=== PATIENT | male | born 1985 | race Caucasian/White ===

== ENCOUNTER 2022-02-22 12:24 | Outpatient (CLI) | payer MEDICARE, MEDICAID, SELFPAY ==
[2022-02-22 13:50] LABS: Chloride* 107 mmol/L (96-114); Sodium* 139 mmol/L (135-149)
[2022-02-22 13:51] LABS: Potassium* 4.3 mmol/L (3.6-5.1)
[2022-02-22 13:53] LABS: Carbon Dioxide* 23 mmol/L (20-32); Creatinine* 0.7 mg/dL (0.5-1.5); Estimated Glomerular Filt Rate 123.23; Hematocrit 44.2 % (37.0-53.0); Hemoglobin* 14.9 gm/dL (13.5-17.5); Mean Corpuscular HGB Conc 34 gm/dL (32-36); Mean Corpuscular Hemoglobin 30 pg (26-34); Mean Corpuscular Volume 88 fL (80-100); Platelet Count* 233 K/uL (140-440); Red Blood Count 5.05 m/uL (4.30-5.90); White Blood Count* 6.06 K/uL (4.50-11.00)
[2022-02-22 13:54] LABS: Blood Urea Nitrogen* 16 mg/dL (5-24); Calcium* 9.2 mg/dL (8.4-10.6); Glucose* 130 mg/dL (60-115)
[2022-02-22 14:03] LABS: Slide Review Reflex No
[2022-02-22 15:00] LABS: SARS PCR* Negative SARS-CoV-2 (Negative)
== END 2022-02-22 12:25 | disposition home or self-care (01) ==
PROVIDERS: PCP Family Medicine; Visit Provider Family Medicine
DX: Z20.822 Contact with and (suspected) exposure to COVID-19 (principal); Z01.818 Encounter for other preprocedural examination
CPT/HCPCS: 80048; 85027; 87635

== ENCOUNTER 2022-02-24 09:14 | Day surgery (SDC) | payer MEDICARE, MEDICAID, SELFPAY ==
[2022-02-24] VITALS (10 sets, daily range): BP systolic 105–132; BP diastolic 73–88; PULSE 76–99; RESP 12–18; TEMP 36.4–36.9; O2SAT 92–96; BMI 45.6
[2022-02-24] MEDS: LACTATED RINGERS 1000 ML 1,000 ML 100 ML IV (09:30)
[2022-02-24] MEDS: SODIUM CHLORIDE 0.9 % (FLUSH) 10 ML SYRINGE IVF (09:49)
--- NOTE | 2022-02-24 11:16 | W.PM.ENTPROC ---
Procedure Note Date of procedure: 02/24/22 Procedure: Preoperative diagnosis right tympanic membrane retraction, chronic right otitis media, conductive hearing loss postoperative diagnosis is severe retraction and serous otitis media Procedure inspection of left ear, right myringotomy without tube placement Under general endotracheal anesthesia patient was prepped and draped in usual fashion. The left ear canal was inspected and cerumen removed with a suction. Dear was no change from exam in clinic. The right ear was inspected and cerumen removed with suction. The entire inferior 2/3 of the tympanic membrane were attached to the floor of the middle ear. They are not appear to be visible cholesteatoma. I was able to make a myringotomy in the anterior superior quadrant to remove small amount of serous fluid. I will this opening was not large enough to place a tube in. Ciprodex drops were placed. The patient had procedure well taken recovery in satisfactory condition blood loss was 0 mL Anesthesia Type: General Surgeon: Amos Elliott MD
--- NOTE | 2022-02-24 11:29 | W.ANESCHARGE ---
Anesthesia Charges Start Date/Time Anesthesia Start Date: 02/24/22 Anesthesia Start Time: 10:57 Stop Date/Time Anesthesia Stop Date: 02/24/22 Anesthesia Stop Time: 11:26 Summary Emergency: No
== END 2022-02-24 12:40 | disposition home or self-care (01) ==
PROVIDERS: PCP Family Medicine; Visit Provider Otolaryngology
PROC: (CPT 69420; principal; 2022-02-24 10:15)
DX: H73.891 Other specified disorders of tympanic membrane, right ear (principal); H65.21 Chronic serous otitis media, right ear; H90.2 Conductive hearing loss, unspecified
CPT/HCPCS: 69421; 120; 170; A9270; J1100; J2250; J2405; J3010; J7120

== ENCOUNTER 2022-08-18 12:26 | Outpatient (CLI) | payer MEDICARE, MEDICAID, SELFPAY ==
[2022-08-18 15:02] LABS: Chloride* 105 mmol/L (96-114); Potassium* 4.1 mmol/L (3.6-5.1); Sodium* 141 mmol/L (135-149)
[2022-08-18 15:04] LABS: Cholesterol* 242 mg/dL (90-199)
[2022-08-18 15:05] LABS: Blood Urea Nitrogen* 15 mg/dL (5-24); Calcium* 9.6 mg/dL (8.4-10.6); Carbon Dioxide* 26 mmol/L (20-32); Creatinine* 0.7 mg/dL (0.5-1.5); Estimated Glomerular Filt Rate 122 ml/min; Glucose* 124 mg/dL (60-115); Triglycerides* 255 mg/dL (40-149)
[2022-08-18 15:06] LABS: HDL Cholesterol* 43 mg/dL (>=40); LDL Cholesterol Calculated 148 mg/dL (<100)
== END 2022-08-18 12:27 | disposition home or self-care (01) ==
PROVIDERS: PCP Family Medicine; Visit Provider Family Medicine
DX: E11.9 Type 2 diabetes mellitus without complications (principal); E66.09 Other obesity due to excess calories; E55.9 Vitamin D deficiency, unspecified; Z13.6 Encounter for screening for cardiovascular disorders
CPT/HCPCS: 80048; 80061

== ENCOUNTER 2024-01-31 15:43 | Outpatient (CLI) | payer MEDICAID, SELFPAY ==
--- OUTSIDE RECORDS SUMMARY | 2024-01-31 15:46 | XMS_ITS | Referral Summary ---
Author Organization [facility] Address [address] [place] [address] Care Team Providers Care Internet Assessor Name Role Phone Unavailable Primary Care Provider Unavailabl e Source Comments Patient records contain information from all sites at [facility]. For routine questions regarding patient records, call [phone] during business hours, M-F 8:00 AM - 5:00 PM Central Time. Record requests for emergency care only can be directed to [phone] at any time.[facility] Allergies Active Allergy Reactions Criticality Noted Date Comments Animal Dander Other (see comments) 04/02/2013 Pet dander House Dust Mite Other (see comments) 12/07/2011 Latex Rash 02/14/2010 Medications Medication Sig Dispensed Refills Start Date End Date Status OLANZapine (ZyPREXA) 10 mg tablet Take 1 tablet (10 mg total) by mouth at bedtime. 30 tablet 1 02/22/2018 Active LORazepam (ATIVAN) 0.5 mg tablet Take 0.5 mg by mouth as needed. 02/26/2018 Active famotidine (PEPCID) 20 mg tablet Take 20 mg by mouth as needed. Active miscellaneous medical supply misc autoCPAP, heated humidifier, mask, headgear, filters and tubing. Pressure: 4-15cm/H2O Length of Need: 99 07/26/2015 Active CIPRODEX 0.3-0.1 % otic suspension INSTILL 4 DROPS IN THE AFFECTED EAR TWICE DAILY FOR 7 DAYS 7.5 mL 03/29/2018 Active OXcarbazepine (TRILEPTAL) 300 mg tablet Take 300 mg by mouth 2 (two) times a day. Active OLANZapine (ZyPREXA) 2.5 mg tablet Take 2.5 mg by mouth at bedtime. 04/26/2018 Active oxyCODONE (ROXICODONE) 5 mg immediate release tabletIndications:Ac yolanda Pain Take 1 tablet (5 mg total) by mouth every 4 (four) hours Indication: Acute Pain. 15 tablet 11/11/2018 Active cholecalciferol (VITAMIN D3) 25 mcg (1,000 Unit) capsule Take 5 capsules by mouth. 06/30/2011 Active multivitamin capsule Take 1 capsule by mouth daily. Active MAGNESIUM CHLORIDE ORAL 200 mg. 02/22/2022 Active ZINC ACETATE ORAL Take by mouth. Act tram Active Problems Problem Noted Date Diagnosed Date Cholesteatoma Middle Ear And Mastoid Left 2017 Schizoaffective Disorder 12/07/2011 Overview: Schizoaffective disorder NOS Immunizations Name Administration Dates Next Due DTaP (Infanrix, Tripedia) 06/29/1992,02/12/1992, 02/11/1991 MMR 01/07/1988 OPV 06/29/1992,02/12/1992,02/11/1991 DARRON 12/26/1987 Social History Tobacco Use Types Packs/Day Years Used Date Smoking Tobacco: Never Smokeless Tobacco: Never Tobacco Cessation:Counseling Given: Not Answered Alcohol Use Standard Drinks/Week Comments Yes 1 (1 standard drink = 0.6 oz pur e alcohol) Social Connection and Isolat ion Panel [NHANES] Answer Date Recorded Frequency of Communication w ith Friends and Family More than three times a week 02/28/2019 Frequency of Social Gatherin gs with Friends and Family Twice a week 02/28/2019 Attends Denominational Services More than 4 times per year 02/28/2019 Active Member of Clubs or Organizations Yes 02/28/2019 Attends Club or Organization Meetings More than 4 times per year 02/28/2019 Marital Status Never 02/28/2019 AUDIT-C Answer Date Recorded Frequency of Alcohol Consumption 2-4 times a sun02/28/2019 Average Number of Drinks 1 or 2 019 Frequency of Binge Drinking Never 02/10 [facility] of Occupat ional Health - Occupational Stress Questionnaire Answer Date Recorded Feeling of Stress Not at all 02/28/2019 Exercise Vital Sign Answer Date Recorde d Days of Exercise per Week 4 days 2018 Minutes of Exercise per Session 30 min 02/28/2019 PRAPARE - Transportation Answer Date Re corded Lack of Transportation (Medical) No 02/28/2019 Lack of Transportation (Non-Medical) No 02/28/2019 Nutrition Answer Date Recorded Nutrition: EVOO Fat Source Unknown 10/12 Nutrition: Servings of Fruits/Vegetables per Day Not on file 10/12/2020 Dental Answer Date Recorded Dental: Regular Dentist Unknown 10/13/19 Education Answer Date Recorded What is the highest level of school you have completed or the highest degree you have received? GED or equivalent Sex and Gender Information Value Date Recorded Sex Assigned at Male 05/03/2018 3:03 PM CDT Gender Identity Male 05/03/2018 3:03 PM CDT Sexual Orientation Straight 05/03/2018 3: 03 PM CDT Last Filed Vital Signs Vital Sign Reading Time Taken Comments Blood Pressure 123/64 11/11/2018 2:58 PM CDT Pulse 91 11/11/2018 2:23 PM CDT Temperature 36.6 ??C (97.9 ??F) 11/11/2018 2:23 PM CD T Respiratory Rate 16 11/11/2018 2:23 PM CDT Oxygen Saturation 90% 11/11/2018 2:23 PM CDT Inhaled Oxygen Concentration - - Weight 138 kg (303 lb 5.7 oz) 11/11/2018 7:06 AM CDT Height 178 cm (5' 10.08) 11/11/2018 7:06 AM CDT Body Mass Index 43.43 11/11/2018 7:06 AM CDT Plan of Treatment Not on file Medical Devices Implanted Type Area Soil Surveyor Device Identifier Shelf Expiration Date Model / Serial / Lot Tb Vnt Gd Grommet 1.14x9.5x12 - [id number] Implanted:Qty: 1 on 11/11/2018 by Sebastián Lan M.D. at [facility] Ear Tubes (e.g. PE Tubes) Medtronic [id number] 08/19/2026 [id number] / / [id number] Procedures Procedure Name Priority Date/Time Associated Diagnosis Comments EXTI LIPID PANEL W REFLEX MEASURED LDL Routine 12/05/2023 12:21 PM CDT EXTI COMPREHENSIVE METABOLIC PANEL, S/P Routine 06/26/2018 2:24 PM SILVERWARE SUPERVISOR from Last 3 Months or Most Recently Relevant to Health Maintenance Advance Directives For more information, please contact: [phone] * Full Code (Latest Code Status on File) Date Activated Date Inactivated Comments 02/18/2018 11:32 PM 02/22/2018 9:17 PM Question Answer Comments Full Code: Not Discussed Due to: Patient not available
--- OUTSIDE RECORDS SUMMARY | 2024-01-31 15:46 | XMS_ITS | Clinical Summary ---
Author Organization [facility] Address [address] [place] [address] Care Team Providers Care Morphology Teacher Name Role Phone Unavailable Primary Care Provider Unavailabl e Source Comments Patient records contain information from all sites at [facility]. For routine questions regarding patient records, call [phone] during business hours, M-F 8:00 AM - 5:00 PM Central Time. Record requests for emergency care only can be directed to [phone] at any time.[facility] Allergies Active Allergy Reactions Criticality Noted Date [...] 02/11/1991 MMR 01/07/1988 OPV 06/29/1992,02/12/1992,02/11/1991 DARRON 12/26/1987 Family History Medical History Relation Name Comments Asthma Brother Hypertension Father Lymphoma Father Alcohol abuse Grandfather 1 Stroke Grandfather 1 Coronary artery disease Grandfather 2 maternal Diabetes Grandfather 2 maternal Hyperlipidemia Grandfather 2 maternal Hypertension Grandfather 2 maternal Obesity Grandfather 2 maternal Colon cancer Grandmother Hyperthyroidism Mother Relation Name Status Comments Brother Father Grandfather 1 Grandfather 2 maternal Grandmother Mother Social History Tobacco Use Types Packs/Day Years [...] and Family Twice a week 02/28/2019 Attends Mandaeism Services More than 4 times per year 02/28/2019 Active Member of Clubs or Organizations Yes 02/28/2019 Attends Club or Organization Meetings More than 4 times per year 02/28/2019 Marital Status Never 02/28/2019 AUDIT-C Answer Date Recorded Frequency of Alcohol Consumption 2-4 times a mon th 02/28/2019 Average Number of Drinks 1 or 2 019 Frequency of Binge Drinking Never 02/10 [facility] of Occupat ional Health - Occupational Stress [...] 11/11/2018 7:06 AM CDT Plan of Treatment Health Maintenance Due Date Last Done Comments HIV Screening 1986 Hepatitis C Screening 1986 DTaP,Tdap,and Td Vaccines (4 - Tdap) 1997 06/29/1992, 02/12/1992, 02/11/1991 Hepatitis B Vaccines (1 of 3 - 19+ 3-dose series) 2005 Glucose Test for Med Monitoring 06/26/2019 06/26/2018, 02/17/2018, 02/17/2018, Additional history exists COVID-19 Vaccine (2022- season) 2023 Influenza Vaccine (#1) 2023 Depression Screening (Annual PHQ-2) 08/13/2023 Lipid (Cholesterol) Screening 12/04/2028 12/05/2023, 04/24/2022, 06/26/2018 HPV Vaccines Aged Out No longer eligi ble based on patient's age to complete this topic Pneumococcal vaccine (0-64 years) Aged Out No longer eligible based on patient's age to complete this topic Medical Devices Implanted Type Area Flight Deck Officer Device Identifier Shelf Expiration Date Model / Serial / Lot Tb Vnt Gd Grommet 1.14x9.5x12 - [id number] Implanted:Qty: 1 on 11/11/2018 by Sebastián Lan M.D. at [facility] Ear Tubes (e.g. PE Tubes) [employer]tronic [id number] 08/19/2026 [id number] / / [id number] Procedures Procedure Name Priority Date/Time Associated Diagnosis Comments EXTI LIPID PANEL W REFLEX MEASURED LDL Routine 12/05/2023 12:21 PM CDT EXTI COMPREHENSIVE METABOLIC PANEL, S/P Routine 06/26/2018 2:24 PM TUBE MACHINE OPERATOR HELPER from Last 3 Months or Most Recently Relevant to Health Maintenance Advance Directives For more information, please contact: [phone] * Full Code (Latest Code Status on File) Date Activated Date Inactivated Comments 02/18/2018 11:32 PM 02/22/2018 9:17 PM Question Answer Comments Full Code: Not Discussed Due to: Patient not available
--- OUTSIDE RECORDS SUMMARY | 2024-01-31 15:46 | XMS_ITS | Clinical Summary ---
Author Organization [facility] Address [place], [place] [address] Care Team Providers Care Channel Marketing Coordinator Name Role Phone Yobany Morales MD Primary Care Provider + Allergies Active Allergy Reactions Criticality Noted Date Comments Amoxicillin Rash,Hives 09/18/2008 Animal Dander Other - Describe In Comment Field 04/02/2013 Pet dander Other reaction(s): Other (see comments) Pet dander Dust Mites 02/14/2010 sneezing House Dust Mite Other - Describe In Comment Field 12/07/2011 Other reaction(s): Other (see comments) Latex Rash 02/14/2010 Milk Other - Describe In Comment Field Low 02/14/2010 Pt states he becomes drowsy and sneezes 07/09/2023: ??Will states that he doesn't think he is allergic to milk anymore, I think I outgrew it. Unlisted Allergen (Include Detail In Comments) *Unknown 04/02/2013 Pet dander Pollen Extracts Other - Describe In Comment Field 03/11/2014 sneezing Medications Medication Sig Dispensed Refills Start Date End Date Status multivitamin (MVI) tablet Take 1 tablet. by mouth once daily. taking it sometimes 0 06/30/2011 Active cholecalciferol (VITAMIN D) 1,000 unit capsule Take 5 capsules by mouth once daily. 0 06/30/2011 Active triamcinolone, 55 mcg each actuation, nasal (NASACORT) 55 mcg nasal spray Inhale 2 Sprays to both nostrils once daily. not taking 16.5 g 0 06/26/2014 Active cetirizine (ZYRTEC) 10 mg tablet Take 10 mg by mouth once daily. takes during the summer 0 06/26/2014 Active famotidine (PEPCID) 20 mg tablet Take 20 mg by mouth two times daily. taking when needed 30 tablet Active fluticasone (50 mcg per actuation) nasal solution (FLONASE) taking when needed, not taking right now 03/15/2021 Active loratadine (CLARITIN) 10 mg tablet Take 10 mg by mouth once daily. summer only 03/11/2021 Active OXcarbazepine (TRILEPTAL) 300 mg tabletIndication s:Schizoaffectiv e disorder, bipolar type (HC) TAKE 1 TABLET(300 MG) BY MOUTH TWICE DAILY 180 Tablet 1 10/08/2023 Active ZINC ACETATE ORAL Take by mouth. Active CPAPIndications: ALF (obstructive sleep apnea) CPAP machine for home use at pressure 4-15cmw, CPAP mask- mask of choice, fit to comfort one per 3 months 1 Each 10/09/2023 Active LORazepam (ATIVAN) 0.5 mg tabIndications:S chizoaffective disorder, bipolar type (HC) Take 1-2 Tablets (0.5-1 mg) by mouth once daily if needed for Anxiety. 15 Tablet 2 12/05/2023 Active haloperidoL (HALDOL) 5 mg tabletIndication s:Schizoaffectiv e disorder, bipolar type (HC) Take 1 Tablet (5 mg) by mouth two times daily. May also take 1 Tablet (5 mg) once daily if needed for Agitation or Hallucinations. 90 Tablet 2 12/05/2023 Active OLANzapine (ZYPREXA) 15 mg tabletIndication s:Schizoaffectiv e disorder, bipolar type (HC) Take 1 Tablet (15 mg) by mouth at bedtime. 30 Tablet 1 01/28/2024 Active OLANzapine (ZYPREXA, FILM COATED TABLET,) 10 mg tabletIndication s:Schizoaffectiv e disorder, bipolar type (HC) Take 1 Tablet (10 mg) by mouth at bedtime. 90 Tablet 1 10/08/2023 01/02/2024 Discontinued (*Medication adjustment) OLANzapine (ZYPREXA) 15 mg tabletIndication s:Schizoaffectiv e disorder, bipolar type (HC) Take 1 Tablet (15 mg) by mouth at bedtime. 30 Tablet 1 01/02/2024 01/25/2024 Discontinued (Reorder (E-cancel not sent)) Active Problems Problem Noted Date Diagnosed Date Controlled substance agreement signed 09/21/2017 Overview: 09/21/17 signed .Viri Kelly DNP, SAFETY EQUIPMENT TESTER, PRODUCTION CELL LEADER/psychiatry Elevated lipids 01/07/2016 ALF 07/02/2105 AHI-96 07/26/2015 Schizoaffective disorder, bipolar type 5 High risk medications (not anticoagulants) long- term use 07/14/2015 Environmental allergies 09/18/2008 Resolved Problems Problem Noted Date Diagnosed Date Resolved Date Controlled substance agreement signed 02/28/2017 02/04/2018 Overview: 11/09/[address] Praveen Schroeder psychiatry/hc OCD (obsessive compulsive disorder) 09/17/2013 09/21/2017 Schizoaffective disorder, un specified condition 08/28/2008 07/14/2015 Depressive disorder, not elsewhere classified 08/28/19 09 09/22/2009 Encounters Date Type Department Care Team Description 01/25/2024 Refill [facility] [address] [place] [address] Danelle Jacob MD Refill Request (Olanzapine 10mg) 01/02/2024 11:45 AM CDT Office Visit [facility] [address] [place] [address] Danelle Jacob MD Medication Management; Follow Up 01/02/2024 Travel 12/07/2023 Telephone [facility] [address] [facility] [place] [address] Danelle Jacob MD 12/05/2023 11:15 AM CDT Office Visit [facility] [address] [place] [address] Danelle Jacob MD Medication Management; Follow Up 12/05/2023 Travel from Last 3 Months Immunizations Name Administration Dates Next Due DTaP 06/29/1992,02/12/1992,02/11/1991 MMR 01/07/1988 Oral Polio Vaccine 06/29/1992,02/12/1992, 991 Varicella Vaccine 12/26/1987 Family History Medical History Relation Name Comments Cancer Father Non Hogkin's Ly mphoma Diabetes Maternal Grandfather Heart Disease Maternal Grandfather Richy ar with surgery. Hyperlipidemia Maternal Grandfather Hypertension Maternal Grandfather Thyroid Disease Mother Relation Name Status Comments Father Maternal Grandfather Mother Social History Tobacco Use Types Packs/Day Years Used Date Smoking Tobacco: Never Smokeless Tobacco: Never Tobacco Cessation:Counseling Given: Not Answered Comments:occ cigars in the past done as a teenager, i was never addicted to it Alcohol Use Standard Drinks/Week Comments Not Currently 0 (1 standard drink = 0.6 oz pur e alcohol) none since PHQ-2 Answer Date Recorded PHQ-2 TOTAL SCORE 2 10/08/2023 Social Connections Answer Date Recorded Frequency of Communication with Friends and Fami ly Not on file 01/05/2023 Financial Resource Strain Answer Date R ecorded Difficulty of Paying Living Expenses 3 01/04/2022 Difficulty of Paying Living Expenses Not on file 01/04/2022 Food Insecurity Answer Date Recorded Worried About Running Out of Food in the Last Ye ar 1 01/04/2022 Transportation Needs Answer Date Record ed Lack of Transportation (Medical) 1 01/04/2022 Housing Stability Answer Date Recorded Unable to Pay for Housing in the Last Year 1 01/04/2022 Sex and Gender Information Value Date Recorded Sex Assigned at Not on file Gender Identity Not on file Sexual Orientation Not on file Obstetrics History Last Filed Vital Signs Vital Sign Reading Time Taken Comments Blood Pressure 126/60 01/02/2024 12:00 PM CDT Pulse 73 01/02/2024 12:00 PM CDT Temperature 36.7 ??C (98.1 ??F) 01/04/2022 3:45 PM CD T Respiratory Rate 18 01/04/2022 3:45 PM CDT Oxygen Saturation 96% 10/09/2023 2:28 PM PROGRAMMING EQUIPMENT OPERATOR Inhaled Oxygen Concentration - - Weight 154.3 kg (340 lb 3.2 oz) 024 12:00 PM CDT Height 175.3 cm (5' 9) 10/09/2023 2:28 PM PROGRAMMING EQUIPMENT OPERATOR Body Mass Index 50.24 10/09/2023 2:28 PM PROGRAMMING EQUIPMENT OPERATOR Plan of Treatment Upcoming Encounters Date Type Department Care Team (Late st Contact Info) Description 02/06/2024 10:45 AM CDT Office Visit [facility] [address] [place] [address] Danelle Jacob MD [address] [place] [address] Health Maintenance Due Date Last Done Comments Tdap 1997 HIV for age 15-65 2001 Hepatitis C screening for age 18-79 2004 Tetanus booster 2006 COVID-19 vaccine series ( season) 2023 Influenza for age 9-49 04/13/2024 BMI (ht and wt on same day) for age 18+ 10/09/2024 10/09/2023, 12/20/2022, 09/25/2019, Additional history exists Depression screening for age 12+ 10/09/2024 10/09/2023, 10/08/2023, 07/10/2023, Additional history exists Lipids for age 35-44 12/04/2028 12/05/2023, 04/24/2022, 06/26/2018, Additional history exists Pneumococcal series for age 6-64 Aged Out No longer eligible based on patient's age to complete this topic Procedures Procedure Name Priority Date/Time Associated Diagnosis Comments LIPID PANEL W REFLEX MEASURED LDL Routine 12/05/2023 12:21 PM CDT half-way current use of antipsychotic medication HEMOGLOBIN A1C SCREENING Routine 12/05/2023 12:21 PM CDT half-way current use of antipsychotic medication from Last 3 Months Results * (ABNORMAL) HEMOGLOBIN A1C SCREENING (12/05/2023 12:21 PM CDT) HEMOGLOBIN A1C SCREENING 7.9(H) <=6.4 % 12/06/2023 2:54 PM CDT [facility] Blood BLOOD SPECIMEN / Unknown Butterfly / Unknown 12/05/2023 12:21 PM CDT 12/05/2023 12:22 PM CDT Narrative [facility] - 12/06/2023 2:54 PM CDT ? (<5.7%) ?Normal ? (5.7% to 6.4%) ? Indicates prediabetes ? (>=6.5%) ? Confirms diabetes Falsely low levels may be seen with: Recent Transfusion, Recent Significant Blood Loss, Hemolytic Diseases, or Falsely elevated levels may be seen with: Untreated Anemias, Splenectomy Danelle Jacob MD CHEMISTRY [facility] [address] [place] [address], * (ABNORMAL) LIPID PANEL W REFLEX MEASURED LDL (12/05/2023 12:21 PM CDT) CHOLESTEROL,TOTAL 253(H) 100 - 199 mg/dL 12/06/2023 12:05 AM T [facility] Comment: Cholesterol, Total Reference Ranges Desirable <200 mg/dL Borderline 200-239 mg/dL High >=240 mg/dL TRIGLYCERIDES 334(H) <150 mg/dL 12/06/2023 12:05 AM [facility] TRAL LABORATORY HDL CHOLESTEROL 40(L) >40 mg/dL 12:05 AM T [facility] NON-HDL CHOLESTEROL 213(H) <145 mg/dl 12/06/2023 12:05 AM [facility] TRAL [facility] CHOL/HDL RATIO 6.33(H) <4.50 12/06/2023 12:05 AM T [facility] LDL CHOLESTEROL 146(H) <=130 mg/dL 12/06/2023 12:05 AM [facility] TRAL [facility] VLDL CHOLESTEROL 67(H) <=30 mg/dL 12/06/2023 12:05 AM CDT [facility] PROVIDER ORDERED STATUS RANDOM 12/06/2023 12:05 AM CDT [facility] Blood BLOOD SPECIMEN / Unknown Butterfly / Unknown 12/05/2023 12:21 PM CDT 12/05/2023 12:22 PM CDT Danelle Jacob MD CHEMISTRY [facility] [address] [place] [address], from Last 3 Months Care Teams Channel Marketing Coordinator Relationship Specialty Start Date End Date Yobany Morales MD [address] [place] [address] PCP - General Family Practice 10/25/22
--- OUTSIDE RECORDS SUMMARY | 2024-01-31 15:46 | XMS_ITS ---
Author Organization [facility] Address [address] [place] [address] Care Team Providers Care Cargo Station Worker Name Role Phone Unavailable Unavailable Unavailable Surgery Details Not on file Complications Check Surgery Details section. Procedure Estimated Blood Loss Check Surgery Details section. Procedure Findings Check Surgery Details section. Procedure Specimens Taken Check Surgery Details section.
== END 2024-01-31 15:44 | disposition home or self-care (01) ==
LOC: NFLDREF 15:44
PROVIDERS: PCP Family Medicine; Visit Provider Family Medicine
DX: R35.0 Frequency of micturition (principal); E11.9 Type 2 diabetes mellitus without complications
CPT/HCPCS: 84153

== ENCOUNTER 2024-06-02 13:54 | Outpatient (CLI) | payer MEDICAID, SELFPAY ==
--- OUTSIDE RECORDS SUMMARY | 2024-06-05 06:10 | XMS_ITS | Referral Summary ---
Author Organization [facility] Address [address] [place] [address] Care Team Providers Care Look Out Tower Fire Watcher Name Role Phone Unavailable Primary Care Provider Unavailabl e Source Comments Patient records contain information from all sites at [facility]. For routine questions regarding patient records, call [phone] during business hours, M-F 8:00 AM - 5:00 PM Central Time. Record requests for emergency care only can be directed to [phone] at any time.[facility] Allergies Active Allergy Reactions Criticality Noted Date Comments Animal Dander Other (see comments) 04/02/2013 Pet dander House Dust Mite Other (see comments) 12/07/2011 Latex Rash 02/14/2010 Medications * This document contains information received from the source organization and may not represent a complete record from that organization. OLANZapine (ZyPREXA) 10 mg tablet Take 1 [...] Active oxyCODONE (ROXICODONE) 5 mg immediate release tabletIndicatio ns:Acute Pain Take 1 tablet (5 mg total) by mouth every 4 (four) hours Indication: Acute Pain. 15 tablet 11/11/2018 Active cholecalciferol (VITAMIN D3) 25 mcg (1,000 Unit) capsule Take 5 capsules by mouth. 06/30/2011 Active multivitamin capsule Take 1 capsule by mouth daily. Active MAGNESIUM CHLORIDE ORAL 200 mg. 02/22/2022 Activ e ZINC ACETATE ORAL Take by mouth. Active Active Problems Problem Noted Date Diagnosed Date Cholesteatoma Middle Ear And Mastoid Left 2017 Schizoaffective Disorder 12/07/2011 Overview (01/02/2017): Schizoaffective disorder NOS Immunizations Name Administration Dates [...] and Family Twice a week 02/28/2019 Attends [employer] Services More than 4 times per year 02/28/2019 Active Member of Clubs or Organizations Yes 02/28/2019 Attends Club or Organization Meetings More than 4 times per year 02/28/2019 Marital Status Never 02/28/2019 AUDIT-C Answer Date Recorded Frequency of Alcohol Consumption 2-4 times a sun02/28/2019 Average Number of Drinks 1 or 2 019 Frequency of Binge Drinking Never 02/10 [facility] - Occupational Stress [...] Assigned at Male 05/03/2018 3:03 PM CDT Legal 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 at [facility] Ear Tubes (e.g. PE Tubes) Medtronic [id number] 08/19/2026 [id number] / / [id number] Procedures Procedure Name Priority Date/Time Associated Diagnosis Comments BASIC METABOLIC PANEL, S/P STAT 02/17/2018 4:07 AM CDT from Last 3 Months or Most Recently Relevant to Health Maintenance Results * BMP (Basic Metabolic Panel) (02/17/2018 4:07 AM CDT) Potassium, P 4.1 3.6 - 5.2 mmol/L 02/17/2018 4:26 AM CDT [facility] Sodium, P 139 135 - 145 mmol/L 02/17/2018 4:26 AM CDT [facility] Chloride, P 102 98 - 107 mmol/L 02/17/2018 4:26 AM CDT [facility] Bicarbonate, P 22 22 - 29 mmol/L 02/17/2018 4:26 AM CDT [facility] Anion Gap, P 15 7 - 15 02/17/2018 4:26 AM CDT [facility] BUN (Blood Urea Nitrogen), P 15 8 - 24 mg/dL 02/17/2018 4:26 AM CDT [facility] Creatinine 0.95 0.74 - 1.35 mg/dL 02/17/2018 4:26 AM CDT [facility] eGFR-Black/Afri can English >90 >=60 mL/min/BSA 02/17/2018 4:26 AM CDT [facility] Comment: ----ADDITIONAL INFORMATION---- Estimated GFR calculated using the 2009 CKD_EPI creatinine equation. eGFR Non-Black/Afric an English >90 >=60 mL/min/BSA 02/17/2018 4:26 AM CDT [facility] Comment: ----ADDITIONAL INFORMATION---- Estimated GFR calculated using the 2009 CKD_EPI creatinine equation. Calcium, Total, P 9.6 8.6 - 10.0 mg/dL 02/17/2018 4:26 AM CDT [facility] Glucose, P 124 70 - 140 mg/dL 02/17/2018 4:26 AM CDT [facility] Blood (Blood, Venous) 02/17/2018 4:07 AM CDT 02/17/2018 4:10 AM CDT Pal Cardona M.D. LAB BLOOD ADD-ON Final Resu lt [facility] [address] [place] [address], [facility] from Last 3 Months or Most Recently Relevant to Health Maintenance Insurance MEDICARE [facility] Advance Directives For more information, please contact: [phone] * Full Code (Latest Code Status on File) Date Activated Date Inactivated Comments 02/18/2018 11:32 PM 02/22/2018 9:17 PM Question Answer Comments Full Code: Not Discussed Due to: Patient not available
--- OUTSIDE RECORDS SUMMARY | 2024-06-05 06:10 | XMS_ITS | Clinical Summary ---
Author Organization [facility] Address [place], [place] [address] Care Team Providers Care Esl Instructor Name Role Phone Yobany Morales MD Primary [...] mouth once daily. taking it sometimes 0 1 Active cholecalciferol (VITAMIN D) 1,000 unit capsule Take 5 capsules by mouth once daily. 0 1 Active triamcinolone, 55 mcg each actuation, nasal (NASACORT) 55 mcg nasal spray Inhale 2 Sprays to both nostrils once daily. not taking 16.5 g 0 4 Active cetirizine (ZYRTEC) 10 mg tablet Take 10 mg by mouth once daily. takes during the summer 0 4 Active famotidine (PEPCID) 20 mg tablet Take 20 mg by mouth two times daily. taking when needed 30 tablet Active fluticasone (50 mcg per actuation) nasal solution (FLONASE) taking when needed, not taking right now 1 Active loratadine (CLARITIN) 10 mg tablet Take 10 mg by mouth once daily. summer only 1 Active OXcarbazepine (TRILEPTAL) 300 mg tabletIndicatio ns:Schizoaffect tram disorder, bipolar type (HC) TAKE 1 TABLET(300 MG) BY MOUTH TWICE DAILY 180 Tablet 1 4 Active ZINC ACETATE ORAL Take by mouth. Active CPAPIndications :ALF (obstructive sleep apnea) CPAP machine for home use at pressure 4-15cmw, CPAP mask- mask of choice, fit to comfort one per 3 months 1 Each 4 Active LORazepam (ATIVAN) 0.5 mg tabIndications: Schizoaffective disorder, bipolar type (HC) Take 1-2 Tablets (0.5-1 mg) by mouth once daily if needed for Anxiety. 15 Tablet 2 4 Active metFORMIN (GLUCOPHAGE) 500 mg tablet Take 500 mg by mouth two times daily with meals. 4 Active haloperidoL (HALDOL) 5 mg tabletIndicatio ns:Schizoaffect tram disorder, bipolar type (HC) TAKE 1 TABLET(5 MG) BY MOUTH TWICE DAILY. MAY ALSO TAKE 1 TABLET DAILY NEEDED FOR AGITATION OR HALLUCINATIONS 90 Tablet 2 4 Active OLANzapine (ZYPREXA) 20 mg tabletIndicatio ns:Schizoaffect tram disorder, bipolar type (HC) TAKE 1 TABLET(20 MG) BY MOUTH AT BEDTIME 30 Tablet 4 Active OLANzapine (ZYPREXA) 20 mg tabletIndicatio ns:Schizoaffect tram disorder, bipolar type (HC) TAKE 1 TABLET(20 MG) BY MOUTH AT BEDTIME 30 Tablet 4 05/19/20 24 Discontinued Active Problems Problem Noted Date Diagnosed Date Controlled substance agreement signed 09/21/2017 Overview (09/21/2017): 09/21/17 signed .Viri Kelly DNP, ASSEMBLY LINE WORKER, STATEMENT PROCESSOR/psychiatry Elevated lipids 01/07/2016 ALF 07/02/2105 AHI-96 07/26/2015 Schizoaffective disorder, bipolar type 5 High risk medications (not anticoagulants) long- term use 07/14/2015 Environmental allergies 09/18/2008 Resolved Problems Problem Noted Date Diagnosed Date Resolved Date Controlled substance agreement signed 02/28/2017 02/04/2018 Overview (02/28/2017): 11/09/[address] Praveen Schroeder psychiatry/ OCD (obsessive compulsive disorder) 09/17/2013 09/21/2017 Schizoaffective disorder, un specified condition 08/28/2008 07/14/2015 Depressive disorder, not elsewhere classified 08/28/19 09 09/22/2009 Encounters Date Type Department Care Team Description 05/28/2024 11:15 AM CDT Office Visit [facility] [address] [place] [address] Danelle Jacob MD Medication Management (Things are going pretty good) 05/28/2024 Travel 05/18/2024 Refill [facility] [address] [place] [address] Danelle Jacob MD Refill Request (Olanzapine) 04/20/2024 Refill [facility] [address] [place] [address] Danelle Jacob MD Refill Request (Olanzapine) 03/26/2024 11:45 AM CDT Telemedicine [facility] [address] [place] [address] Danelle Jacob MD Telehealth; Medication Management (Things are going pretty good right now) 03/24/2024 Refill [facility] [address] [place] [address] Danelle Jacob MD Refill Request (Olanzapine) 03/14/2024 Refill [facility] [address] [place] [address] Danelle Jacob MD Refill Request (Haloperidol) from Last 3 Months Immunizations Name Administration Dates Next Due DTaP 06/29/1992,02/12/1992,02/11/1991 MMR 01/07/1988 Oral Polio Vaccine 06/29/1992,02/12/1992, 991 Varicella Vaccine 12/26/1987 Family History Medical History Relation Name Comments Cancer Father Non Hogkin's Ly mphoma Diabetes Maternal Grandfather Heart Disease Maternal Grandfather Valvul ar with surgery. Hyperlipidemia Maternal Grandfather Hypertension [...] drink = 0.6 oz pur e alcohol) Rare PHQ-2 Answer Date Recorded PHQ-2 TOTAL SCORE 1 05/28/2024 Social Connections Answer Date Recorded Frequency of Communication with Friends and Fami ly 0 01/04/2022 Financial Resource Strain Answer Date R ecorded [...] Sign Reading Time Taken Comments Blood Pressure 125/73 05/28/2024 11:17 AM CDT Pulse 62 05/28/2024 11:17 AM CDT Temperature 36.7 ??C (98.1 ??F) 01/04/2022 3:45 PM CD T Respiratory Rate 18 01/04/2022 3:45 PM CDT Oxygen Saturation 96% 10/09/2023 2: 28 PM LINE PAINTING MACHINE OPERATOR Inhaled Oxygen Concentration - - Weight 145.9 kg (321 lb 11.2 oz) 2023 11:17 AM CDT Height 175.3 cm (5' 9) 10/09/2023 2:28 PM LINE PAINTING MACHINE OPERATOR Body Mass Index 47.51 10/09/2023 2:28 PM LINE PAINTING MACHINE OPERATOR Plan of Treatment Upcoming Encounters Date Type Department Care Team (Late st Contact Info) Description 09/01/2024 12:45 PM LINE PAINTING MACHINE OPERATOR Office Visit [facility] [address] [place] [address] Danelle Jacob MD [address] [place] [address] Health Maintenance Due Date Last Done Comments Tdap 1997 HIV for age 15-65 2001 Hepatitis C screening for age 18-79 2004 Tetanus booster 2006 COVID-19 vaccine series ( season) 2024 Influenza for age 9-49 04/13/2024 BMI (ht and wt on same day) for age 18+ 10/09/2024 10/09/2023, 12/20/2022, 09/25/2019, Additional history exists Depression screening for age 12+ 05/28/2025 05/28/2024, 10/09/2023, 10/08/2023, Additional history exists Lipids for age 35-44 12/04/2028 12/05/2023, 04/24/2022, 06/26/2018, Additional history exists Pneumococcal series for age 6-64 Aged Out No longer eligible based on patient's age to complete this topic Procedures Procedure Name Priority Date/Time Associated Diagnosis Comments LIPID PANEL W REFLEX MEASURED LDL Routine 12/05/2023 12:21 PM CDT alf current use of antipsychotic medication from Last 3 Months or Most Recently Relevant to Health Maintenance Results * (ABNORMAL) LIPID PANEL W REFLEX MEASURED LDL (12/05/2023 12:21 PM CDT) CHOLESTEROL,TOTAL 253(H) 100 - 199 mg/dL 12/06/2023 12:05 AM CDT [facility] Comment: Cholesterol, Total Reference Ranges Desirable <200 mg/dL Borderline 200-239 mg/dL High >=240 mg/dL TRIGLYCERIDES 334(H) <150 mg/dL 12/06/2023 12:05 AM CDT [facility] HDL CHOLESTEROL 40(L) >40 mg/dL 12:05 AM CDT [facility] [place] [facility] NON-HDL CHOLESTEROL 213(H) <145 mg/dl 12/06/2023 12:05 AM T [facility] [place] [facility] CHOL/HDL RATIO 6.33(H) <4.50 12/06/2023 12:05 AM T [facility] LDL CHOLESTEROL 146(H) <=130 mg/dL 12/06/2023 12:05 AM T [facility] VLDL CHOLESTEROL 67(H) <=30 mg/dL 12/06/2023 12:05 AM T [facility] PROVIDER ORDERED STATUS RANDOM 12/06/2023 12:05 AM T [facility] Blood BLOOD SPECIMEN / Unknown Butterfly / Unknown 12/05/2023 12:21 PM CDT 12/05/2023 12:22 PM CDT Danelle Jacob MD CHEMISTRY [facility] [address] [address] from Last 3 Months or Most Recently Relevant to Health Maintenance Care Teams Esl Instructor Relationship Specialty Start Date End Date Yobany Morales MD [address] [place] [address] PCP - General Family Practice 10/25/22
--- OUTSIDE RECORDS SUMMARY | 2024-06-05 06:10 | XMS_ITS ---
Author Organization [facility] Address [address] [place] [address] Care Team Providers Care Bunch Breaker Name Role Phone Unavailable Unavailable Unavailable Surgery Details Not on file Complications Check Surgery Details section. Procedure Estimated Blood Loss Check Surgery Details section. Procedure Findings Check Surgery Details section. Procedure Specimens Taken Check Surgery Details section.
--- OUTSIDE RECORDS SUMMARY | 2024-06-05 06:10 | XMS_ITS | Clinical Summary ---
Author Organization [facility] Address [address] [place] [address] Care Team Providers Care Structural Ironworker Name Role Phone Unavailable Primary Care Provider Unavailabl e Source Comments Patient records contain information from all sites at [facility]. For routine questions regarding patient records, call [phone] during business hours, M-F 8:00 AM - 5:00 PM Central Time. Record requests for emergency care only can be directed to [phone] at any time.[facility] Allergies Active Allergy Reactions Criticality Noted [...] and Family Twice a week 02/28/2019 Attends [employer] Services More than 4 times per year 02/28/2019 Active Member of Clubs or Organizations Yes 02/28/2019 Attends Club or Organization Meetings More than 4 times per year 02/28/2019 Marital Status Never 02/28/2019 AUDIT-C Answer Date Recorded Frequency of Alcohol Consumption 2-4 times a sun02/28/2019 Average Number of Drinks 1 or 2 019 Frequency of Binge Drinking Never 02/10 [facility] Occupat ional Health - Occupational Stress [...] PM CDT 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 Gender Identity Male 05/03/2018 3:03 PM CDT [...] 06/26/2019 06/26/2018, 02/17/2018, 02/17/2018, Additional history exists Depression Screening (Annual PHQ-2) 08/13/2023 COVID-19 Vaccine (2023- season) 2024 Influenza Vaccine (#1) 2024 Lipid (Cholesterol) Screening 12/04/2028 12/05/2023, 04/24/2022, 06/26/2018 HPV Vaccines Aged Out No longer eligi ble based on patient's age to complete this topic Pneumococcal vaccine (0-64 years) Aged Out No longer eligible based on patient's age to complete this topic Medical Devices Implanted Type Area Call Center Rn Device Identifier Shelf Expiration Date Model / Serial / Lot Tb Vnt Gd Grommet 1.14x9.5x12 - [id number] Implanted:Qty: 1 on 11/11/2018 by Sebastián Lan M.D. at [facility] Ear Tubes (e.g. PE Tubes) [employer] [id number] 08/19/2026 [id number] / [id number] Procedures Procedure Name Priority Date/Time Associated Diagnosis Comments BASIC METABOLIC PANEL, S/P STAT 02/17/2018 4:07 AM CDT from Last 3 Months or Most Recently Relevant to Health Maintenance Results * BMP (Basic Metabolic Panel) (02/17/2018 4:07 AM CDT) Potassium, P 4.1 3.6 - 5.2 mmol/L 02/17/2018 4:26 AM CDT [facility] Sodium, P 139 135 - 145 mmol/L 02/17/2018 4:26 AM CDT [facility] Chloride, P 102 98 - 107 mmol/L 02/17/2018 4:26 AM CDT [facility] Bicarbonate, P 22 22 - 29 mmol/L 02/17/2018 4:26 AM CDT [facility] Anion Gap, P 15 7 - 15 02/17/2018 4:26 AM CDT [facility] BUN (Blood Urea Nitrogen), P 15 8 - 24 mg/dL 02/17/2018 4:26 AM CDT [facility] Creatinine 0.95 0.74 - 1.35 mg/dL 02/17/2018 4:26 AM CDT [facility] eGFR-Black/Afri can [place] >90 >=60 mL/min/BSA 02/17/2018 4:26 AM CDT [facility] Comment: ----ADDITIONAL INFORMATION---- Estimated GFR calculated using the 2009 CKD_EPI creatinine equation. eGFR Non-Black/Afric an [place] >90 >=60 mL/min/BSA 02/17/2018 4:26 AM CDT [facility] Comment: ----ADDITIONAL INFORMATION---- Estimated GFR calculated using the 2009 CKD_EPI creatinine equation. Calcium, Total, P 9.6 8.6 - 10.0 mg/dL 02/17/2018 4:26 AM CDT [facility] Glucose, P 124 70 - 140 mg/dL 02/17/2018 4:26 AM CDT [facility] Blood (Blood, Venous) 02/17/2018 4:07 AM CDT 02/17/2018 4:10 AM CDT us Pal Cardona M.D. LAB BLOOD ADD-ON Final Resu lt [facility] [address] [place] [address], [facility] from Last 3 Months or Most Recently Relevant to Health Maintenance Insurance MEDICARE [facility] Advance Directives For more information, please contact: [phone] * Full Code (Latest Code Status on File) Date Activated Date Inactivated Comments 02/18/2018 11:32 PM 02/22/2018 9:17 PM Question Answer Comments Full Code: Not Discussed Due to: Patient not available
== END 2024-06-02 13:55 | disposition home or self-care (01) ==
LOC: NFLDREF 06-05 06:08
PROVIDERS: PCP Family Medicine; Referring Provider Family Medicine; Visit Provider Family Medicine
DX: E11.9 Type 2 diabetes mellitus without complications (principal)
CPT/HCPCS: 82043; 82570

== ENCOUNTER 2024-11-05 12:36 | Outpatient (CLI) | payer MEDICAID, SELFPAY | END 2024-11-05 12:37 | disposition home or self-care (01) | PROVIDERS: PCP Family Medicine; Visit Provider Family Medicine | DX: E11.9 Type 2 diabetes mellitus without complications (principal); E55.9 Vitamin D deficiency, unspecified | CPT/HCPCS: 80048; 80061 ==